=== PATIENT | female | born 1980 | race Caucasian/White ===

== ENCOUNTER 2022-06-21 11:50 | Outpatient (CLI) | payer OTHER ==
--- NOTE | 2022-06-21 15:31 | XRAY Report ---
PROCEDURE: Finger(s) RT INDICATIONS: OTHER SPRAIN OF RIGHT THUMB TECHNIQUE: PA hand, 2 views of the thumb acquired. COMPARISON: None. FINDINGS: Bones: No acute fractures or dislocations. No suspicious bony lesions. Soft tissues: No suspicious soft tissue calcifications. IMPRESSION: No acute osseous abnormality. If there is clinical concern or persistent symptoms, additional imaging such as repeat radiographs or advanced imaging (e.g. CT, MRI) may be helpful for further evaluation. Reviewed by: Aram Lord MD on 06/21/2022 3:29 PM PDT Approved by: Aram Lord MD on 06/21/2022 3:29 PM PDT Station ID: [id number]
== END 2022-06-21 11:51 | disposition home or self-care (01) ==
LOC: DI 11:50
PROVIDERS: ATTEND Physician Assistant Medical
DX: S63.681A Other sprain of right thumb, initial encounter (principal)